=== PATIENT | female | born 1975 | race Two or more races ===

== ENCOUNTER → 2021-06-30 | Outpatient (CLI) | payer OTHER | LOC: MAMO 07:40 | DX: Z12.31 Encounter for screening mammogram for malignant neoplasm of breast (principal) | CPT/HCPCS: 77063; 77067 ==

== ENCOUNTER 2022-02-02 11:34 | Emergency (ER) | payer OTHER ==
[2022-02-02 13:36] LABS: HEMOGLOBIN 14.4 gm/dl (12.3-15.3); RED BLOOD COUNT 4.9 M/UL (4.00-5.10); WHITE BLOOD COUNT 7.5 K/UL (4.5-11.0)
[2022-02-02 14:03] LABS: BUN/CREATININE RATIO 25 (0-10)
== END 2022-02-02 16:35 | disposition home or self-care (01) ==
LOC: ER1 11:34
PROVIDERS: Physician Assistant Medical
DX: R07.89 Other chest pain (principal)
CPT/HCPCS: 71260; 80053; 82550; 82553; 84484; 85025; 99285; Q9967